=== PATIENT | male | born 1940 | race Caucasian/White ===

== ENCOUNTER 2017-11-28 14:38 | Outpatient (CLI) ==
--- NOTE | 2017-11-28 15:35 | DI ---
Exam: Four x-rays of the chest. Comparison: 12/21/2011. Reason for exam: Chronic obstructive pulmonary disease. FINDINGS: No pneumothorax. The cardiac silhouette is not enlarged. The imaged osseous structures appear grossly unremarkable without acute fracture. There is flattening of the hemidiaphragms and bl unting of both costophrenic angles. Developing air space consolidation is seen on the lateral view li jason in the left lingular or retrocardiac air space. Impression: Developing consolidation on the lateral view likely in the left lingular or retrocardiac air space. Similar appearing chronic lung disease.
== END 2017-11-28 14:39 | disposition home or self-care (01) ==
LOC: RAD 14:38
PROVIDERS: ATTEND Family Medicine
DX: J44.9 Chronic obstructive pulmonary disease, unspecified (principal); R05 Cough; R06.02 Shortness of breath

== ENCOUNTER 2018-11-13 08:44 | Outpatient (CLI) ==
--- NOTE | 2018-11-13 12:03 | CT ---
EXAM: CT chest without contrast HISTORY: Chronic obstructive pulmonary disease COMPARISON: None TECHNIQUE: CT chest performed without intravenous contrast. Coronal and sagittal reformatted images obtained FINDINGS: Thyroid and thoracic inlet appear normal. Heart normal in size. No pericardial effusion. Aorta normal in caliber. Evaluation for lymphadenopathy limited without contrast. No lymphadenopa thy identified. Calcified mediastinal lymph nodes, consistent with old granulomatous disease. Visua lized portion upper abdomen demonstrates no acute abnormality. No acute abnormalities of the bones. Degenerative change in the spine. Central airway patent. Severe emphysematous change, with both ce ntrilobular and para septal emphysema. Bilateral lower airway thickening. No airspace consolidation . No pleural effusion. No pneumothorax. 6 mm ground-glass nodule left lower lobe image 52. 5 mm g round-glass nodule right lung image 34. 3 mm nodular density right lung image 56. Right apical scar ring. IMPRESSION: 1. Severe emphysema. 2. Bilateral lower airway thickening, suggesting small airways infection/inflammation. 3. Several pulmonary nodules measuring up to [address] chest follow-up in 6 months
== END 2018-11-13 08:45 | disposition home or self-care (01) ==
LOC: RAD 08:44
PROVIDERS: ATTEND Family Medicine
DX: J44.9 Chronic obstructive pulmonary disease, unspecified (principal); R05 Cough; R91.1 Solitary pulmonary nodule